=== PATIENT | male | born 1960 | race Caucasian/White ===

== ENCOUNTER 2024-01-08 21:03 | Emergency (ER) | payer BC ==
[2024-01-08 21:30] LABS: BASOPHILS ABSOLUTE AUTO 0.1 K/mm3 (0.0-0.2); BASOPHILS PERCENT AUTO 0.9 % (0.0-1.0); EOSINOPHILS ABSOLUTE AUTO 0.2 K/mm3 (0.0-0.4); EOSINOPHILS PERCENT AUTO 2.2 % (0.0-6.0); HEMATOCRIT 47.8 % (42.0-52.0); IMMATURE GRAN ABSOLUTE AUTO 0.03 K/mm3 (0.00-0.05); IMMATURE GRAN PERCENT AUTO 0.3 % (0.0-0.4); LYMPHOCYTES ABSOLUTE AUTO 4.1 K/mm3 (1.0-4.8); LYMPHOCYTES PERCENT AUTO 43.1 % (24.0-44.0); MEAN CORPUSCULAR HEMOGLOBIN 31.5 pg (28.0-32.0); MEAN CORPUSCULAR HGB CONC 35.6 g/dl (32.0-36.0); MEAN CORPUSCULAR VOLUME 88.5 fl (83.0-99.0); MEAN PLATELET VOLUME 9.8 fl (9.4-12.4); MONOCYTES PERCENT AUTO 10.7 % (0.0-8.0); NEUTROPHILS ABSOLUTE AUTO 4.1 K/mm3 (1.8-7.7); NEUTROPHILS PERCENT AUTO 42.8 % (41.0-71.0); PLATELET COUNT,PLT 262 K/mm3 (150-400); WHITE BLOOD CELL COUNT,WBC 9.51 K/mm3 (3.9-11.3)
[2024-01-08] MEDS: Aspirin 81 MG Tab.Chew PO ONE (22:05)
[2024-01-08] MEDS: Labetalol 100 MG/20 ML MDV IVPUSH ONE (22:06)
[2024-01-08] MEDS: Sodium Chloride 0.9% 10 ML Syringe FLUSH PRN (22:07)
[2024-01-08 22:16] LABS: A/G RATIO 0.8 (1-2); ALBUMIN 3.1 g/dl (3.4-5.0); ALKALINE PHOSPHATASE 82 U/L (46-116); ANION GAP 14.8 (5-15); BILIRUBIN TOTAL 0.9 mg/dL (0.2-1.0); BLOOD UREA NITROGEN,BUN 10 mg/dL (7-18); BUN/CREATININE RATIO 9.1 (14-18); CARBON DIOXIDE,CO2 26 mEq/L (21-32); CHLORIDE,CL 98 mEq/L (98-107); ESTIMATED GFR 75 mL/min (>60); SODIUM,NA 135 mEq/L (136-145)
[2024-01-08 22:31] LABS: TROPONIN I HIGH SENSITIVITY 370 pg/mL (<=76)
[2024-01-08 22:34] LABS: GLUCOSE RANDOM 324 mg/dL (70-99); POTASSIUM,K 3.8 mEq/L (3.5-5.1)
[2024-01-08 22:35] LABS: CALCIUM 7.7 mg/dL (8.5-10.1)
[2024-01-08] MEDS: Heparin Sodium 5,000 Units/ML Vial IVPUSH ONE (23:28)
[2024-01-08] MEDS: Heparin Sodium/D5W 25,000 UNITS/500 ML BAG IV SCH (23:29)
[2024-01-08 23:37] LABS: PTT,PARTIAL THROMBOPLSTIN TIME 25.6 SECONDS (21.7-31.4)
[2024-01-08 23:38] LABS: INR 1.04
[2024-01-08] MEDS: Nitroglycerin 0.4 MG Tab.SL SL PRN (23:48)
== END 2024-01-09 00:16 ==
LOC: JD.ED 21:03
DX: I21.4 Non-ST elevation (NSTEMI) myocardial infarction (principal); I10 Essential (primary) hypertension
CPT/HCPCS: 36415; 71045; 80053; 83690; 83880; 84484; 85025; 85610; 85730; 93005; 96365; 96375; 99285; A9270; J1644; J1921; J3490